=== PATIENT | female | born 1995 | race Caucasian/White ===

== ENCOUNTER 2022-02-01 15:15 | Inpatient (IN) | payer SELFPAY ==
[2022-02-01] VITALS (80 sets, daily range): BP systolic 119–189; BP diastolic 64–117; PULSE 82–119; RESP 16–24; TEMP 36.8–37.6; O2SAT 92–100; BMI 36.6
[2022-02-01] MEDS: NIFEdipine 10 MG Capsule PO (15:06)
[2022-02-01] MEDS: Lactated Ringers 1,000 ML 15 ML IV (15:12)
[2022-02-01] MEDS: Magnesium Sulfate 4gm/100mL 4 GM/100 ML IV.SOLN. IV (15:12)
[2022-02-01] MEDS: NIFEdipine 10 MG Capsule 20 MG PO ×2 (15:35→15:50)
[2022-02-01] MEDS: 0.9% Normal Saline Single 100 ML IV.SOLN. INTRA-UTER (15:36)
[2022-02-01] MEDS: Magnesium Sulfate 20 GM/500 ML BAG IV (15:37)
[2022-02-01 15:40] LABS: Bacteria 0 SEEN /hpf (None Seen); Mucous, Urine 0 SEEN /hpf (<or=2+); Red Blood Cells-Urine 0 SEEN /hpf (0-5); White Blood Cells 0 SEEN /hpf (0-5)
[2022-02-01 15:45] LABS: Absolute Lymphocyte Count 2.72 X10^3/uL (0.83-4.51); Absolute Neutrophil Count 9.3 X10^3/uL (2.0-7.7); Basophil# 0.04 X10^3/uL; Basophil% 0.3 % (0-1); Eosinophils% 0.8 % (0-5); Hematocrit 38.5 % (37-47); Hemoglobin 13.1 g/dL (12.0-15.0); Lymphocyte # 2.72 X10^3/ul (0.83-4.51); Lymphocyte % 21.2 % (19-41); Mean Corpuscular Hgb 29.4 pg (27.0-32.0); Mean Corpuscular Volume 86.3 fL (81-99); Mean Platelet Vol. 9.8 fl (6.2-12.0); Monocyte# 0.57 X10^3/uL; Monocyte% 4.4 % (0-10); NRBC Flagged by Analyzer 0 % (0-5); Neutrophil % 72.4 % (47-70); Platelet Count 319 K/mm3 (150-450); RBC Distribution Width CV 13.6 % (11.6-14.6); RBC Distribution Width SD 42.5 fl (35.1-43.9); Red Blood Count 4.46 M/mm3 (4.2-5.4); White Blood Count 12.8 K/mm3 (4.4-11.0)
--- NOTE | 2022-02-01 15:46 | PCM.HP.OB ---
HPI - General General Date of Admission: 02/01/22 Date of Service: 02/01/22 Chief Complaint: Pre eclampsia with severe features HPI Narrative SHARONDA LESTER, is a 26 F who presents at 37 wk gestation with severe SHUKLA, vision changes, and elevated BP. She had late care with a professional poker player at home. She has not had an ultrasound in the . She has not had labs in the . She reports her due date is based on a certain first day of last menstrual period. She reports a history of regular menstrual cycles. The professional poker player is present and states she started caring for the patient in the second trimester. She reports the patient's blood pressures have been elevating over the last 2 to 3 months. Another professional poker player went to the patient's home today to check her blood pressure, and it was found to be in the 170s systolic therefore the patient presented to labor and delivery. She reports she has had a headache over the last several days. Today the headache is severe. She notes blurred vision. Blood pressure on admission is 170s to 180s systolic. She also reports facial and hand swelling. She has significant edema of the lower extremities. She denies epigastric or right upper quadrant pain. She denies contractions, vaginal bleeding, leaking of fluid. She reports good movement. The patient reports she has had 2 vaginal deliveries with the biggest baby being over 8 pounds. She reports elevated blood pressures in both those pregnancies. She denies any other complications with her pregnancies or deliveries. [facility] Medical History (Updated 02/01/22 @ 15:[address] Nay Landers, DO) Hypertension affecting Medical History no medical history Home Medications Vitamin 02/01/22 [History Last Taken 01/31/22 10:00 1 tablet] iron 02/01/22 [History Last Taken Unknown] magnesium 2 tab PO Q1H 02/01/22 [History Last Taken 01/31/22] Allergy/AdvReac Type Severity Reaction Status Date / Time No Known Allergies Allergy Verified 02/01/22 14:46 Family History no significant family his Surgical History no surgical history Social History Smoking Status: Never smoker History Elective abortions Hx Para 2 Spontaneous abortions Hx # Term Pregnancies Ectopic pregnancies Hx # Pregnancies Multiple births # of living children NST FHR Rate Baby A Variability:: Moderate Accelerations:: 15 x 15 Decelerations:: None NST Reactive:: Yes FHR Category:: Category I Uterine Activity:: No ctx's Vital Signs Vital Signs Vital Signs: 02/01/22 14:36 02/01/22 14:36 02/01/22 14:40 Temperature Temperature Source Temporal Pulse Rate 86 Blood Pressure 179/110 H BP Systolic 179 BP Diastolic 110 02/01/22 14:40 02/01/22 14:52 02/01/22 14:52 Temperature 99.6 F H Temperature Source Pulse Rate 107 H Blood Pressure 182/111 H BP Systolic 182 BP Diastolic 111 02/01/22 15:00 02/01/22 15:00 02/01/22 15:07 Temperature 99.5 F H Temperature Source Axillary Pulse Rate Blood Pressure 189/113 H BP Systolic 189 BP Diastolic 113 02/01/22 15:07 02/01/22 15:13 02/01/22 15:26 Temperature Temperature Source Oral Pulse Rate 82 Blood Pressure 176/102 H BP Systolic 176 BP Diastolic 102 02/01/22 15:26 02/01/22 15:46 02/01/22 15:46 Temperature Temperature Source Pulse Rate 93 100 Blood Pressure 178/111 H BP Systolic 178 BP Diastolic 111 Weight Weight: 213 lb Body Mass Index (BMI) 36.6 Labs Labs Labs: Blood Type Pending Antibody Screen Pending Hct 38.5 % (37-47) Hgb 13.1 g/dL (12.0-15.0) Syphilis Total Ab Pending Rubella IgG Antibody Pending Hep Bs Antigen Pending HIV 1&2 Antibody Pending Group B Strep DNA Pending Assessment & Plan (1) 37 weeks gestation of : PLAN: Dating based on certain LMP with regular menstrual cycles. No prior ultrasound. Bedside ultrasound today with EFW about 6 lb 2 oz and normal fluid. Ultrasound confirms vertex presentation. (2) No care in current : PLAN: - panel and GBS on admission (3) Pre-eclampsia, severe: PLAN: - Start mag gtt for seizure prophylaxis. Start HTN protocol with Procardia as patient did not have IV. Fluid restriction. Clear liquids. Strict I&O's. Pre eclampsia labs on admission. Discussed pre eclampsia with the patient and her given severely elevated BP's, a severe persistent SHUKLA and persistent visual changes. Given gestational age, recommend delivery. Patient desires to proceed with IOL after discussion of r/b/a. (4) Multiparous:
[2022-02-01] MEDS: Oxytocin 30 units/NS 500 ml 30 UNITS/500 ML IV.SOLN IV (15:55)
[2022-02-01] MEDS: Labetalol (Prefilled) 20 MG/4 ML IV (16:11)
[2022-02-01 16:19] LABS: Protein, Urine (Random) 327.7 mg/dL (<11.9); Protein:Creat Ratio 14564 mg/g CRE (0-200)
[2022-02-01 16:25] LABS: Color, Urine Yellow (Yellow); Glucose, Dipstick Normal (Normal); Ketone-Dipstick Negative (Negative); Leukocyte Esterase-Dipstick Negative /ul (Negative); Nitrite-Dipstick Negative (Negative); Occult Blood-Urine 25 /ul (Negative); Protein-Dipstick 500 mg/dl (Negative); Urine Bilirubin Dipstick Negative (Negative); Urine Clarity Clear (Clear); Urine Urobilinogen Normal (Normal)
--- NOTE | 2022-02-01 16:26 | PCM.PN.BLA ---
Progress Note At bedside to re evaluate pt. Gave 3 doses of Procardia, now giving 1 dose of IV Labetalol for persistent elevated BP's. Mag gtt running. Pit at 2 mu/min. Coppola is out and cvx 4/70/-2, vertex, head well applied. AROM performed in usual fashion with return of clear fluid. She reports delivery of second child was quick. Anticipate vaginal delivery. If BP's cannot be controlled will need to consider section with consultation to hospitalist for assistance.
[2022-02-01 16:30] LABS: AST(SGOT) 28 U/L (15-37); Alanine Aminotransfer ALT/SGPT 20 U/L (13-56); Creatinine, Serum 0.66 mg/dL (0.55-1.02); EST Glomerular Filtration Rate 115 mL/min (>60); Est Glom Filt Rate - Afr Amer 140 mL/min (>60); Estimated Creatinine Clearance 112.52 ml/min; Uric Acid 5.3 mg/dL (2.6-6.0)
[2022-02-01 16:36] LABS: Squamous Epithelial Cells - UA 0-5 SEEN /hpf (5-10)
[2022-02-01 16:39] LABS: Amphetamine Urine VISTA NEGATIVE (<1000 ng/mL); Barbiturate Urine VISTA NEGATIVE (< 200 ng/mL); Benzodiazepine Urine VISTA NEGATIVE (< 200 ng/mL); Cocaine Urine VISTA NEGATIVE (< 300 ng/mL); Ecstacy Urine VISTA NEGATIVE (< 500 ng/mL); Methadone Urine VISTA NEGATIVE (< 300 ng/mL); PCP Urine VISTA NEGATIVE (< 25 ng/mL); THC Urine VISTA NEGATIVE (< 50 ng/mL); Vista UDS pH Range 6
[2022-02-01 17:13] LABS: Group B Strep DNA By PCR Negative (Negative); Internal Control PASS; Probe Check PASS; Specimen Processing Control PASS
[2022-02-01 17:15] LABS: Chlamydia Trachomatis by PCR Negative (Negative); Neisserai gonorrhoeae by PCR Negative (Negative); Probe Check PASS; Sample Adequacy Control PASS; Specimen Processing Control PASS
[2022-02-01] MEDS: Labetalol 100 MG Tablet PO (18:07)
[2022-02-01 18:23] LABS: HIV - WCH Non-Reactive (Nonreactive); Hepatitis B Surface Antigen Non-Reactive (Nonreactive); Hepatitis C Antibody Non-Reactive (Nonreactive)
[2022-02-01] MEDS: Acetaminophen 500 MG Tablet PO (18:45)
[2022-02-01] MEDS: Oxytocin 30 units/NS 500 ml 30 UNITS/500 ML IV.SOLN 334 UNITS IV (20:14)
--- NOTE | 2022-02-01 20:29 | OP.PCM_ITS ---
Problems Associated Problem List Diagnoses (1) Multiparous: (2) Pre-eclampsia, severe: (3) No care in current : (4) 37 weeks gestation of : Report of Operation Date of Procedure: 02/01/22 Pre-Operative Diagnosis: 37 week gestation, no care, pre eclampsia with severe features Post-Operative Diagnosis: As above Surgery/Procedure Performed:: Description of Surgical Findings:: Vigorous VFI with apgars 8,9. Normal appearing placenta with 3 VC. No lacerations. Surgeon: Nay Landers front end manager: None Type of Anesthesia: None Special Medications: None Specimen's removed: Placenta Drains: None Estimated Blood Loss (mL): 200 Fluids Replaced: N/A Description of Procedure: RN checked patient upon my arrival to the hospital and patient was 8 cm with a station of 0 to -1 per RN. Patient was placed in hands and knees by RN. Less than 5 minutes after patient was 8 cm, the patient delivered with layboy operator p wally. was delivered with patient in hands and knees by her layboy operator. Upon my arrival into the room the patient was in hands and knees, and infant was crying and vigorous covered with a blanket in the bed. The cord was clamped by myself. The cord was then cut by FOB. Patient was placed on back. The placenta was delivered with fundal massage. Placenta was noted to be normal appearing and intact with 3 VC. Fundus firm and bleeding hemostatic. No lacerations noted. Grafts/Implants Used: None Complications None Admit VTE Documentation VTE Present on Admission: No
[2022-02-01] MEDS: Labetalol 200 MG Tablet PO (20:43)
[2022-02-01] MEDS: Methylergonovine 0.2 MG/ML Ampul IM (22:28)
[2022-02-02] VITALS (35 sets, daily range): BP systolic 131–150; BP diastolic 74–98; PULSE 72–106; RESP 16–20; TEMP 36.4–37.7; O2SAT 83–99
[2022-02-02] MEDS: Magnesium Sulfate 20 GM/500 ML BAG IV ×2 (01:29→10:28)
[2022-02-02] MEDS: Acetaminophen 500 MG Tablet 1000 MG PO ×2 (01:33→08:12)
[2022-02-02 06:00] LABS: Hematocrit 37.3 % (37-47); Mean Corp Hgb Conc 34.9 g/dL (32-36); Mean Corpuscular Hgb 29.5 pg (27.0-32.0); Mean Corpuscular Volume 84.6 fL (81-99); Mean Platelet Vol. 9.6 fl (6.2-12.0); Platelet Count 287 K/mm3 (150-450); RBC Distribution Width CV 13.7 % (11.6-14.6); RBC Distribution Width SD 42.3 fl (35.1-43.9); Red Blood Count 4.41 M/mm3 (4.2-5.4); White Blood Count 14.4 K/mm3 (4.4-11.0)
[2022-02-02 06:25] LABS: ALB/GLOB Ratio 0.7 RATIO (0.9-2.4); AST(SGOT) 23 U/L (15-37); Alanine Aminotransfer ALT/SGPT 19 U/L (13-56); Albumin, Serum 2.2 g/dL (3.2-5.0); Alkaline Phosphatase 130 U/L (45-117); Anion Gap 8 (5-15); BUN 22 mg/dL (7-18); BUN/Creat Ratio 47.2 RATIO (10-20); Calcium,Total 7.7 mg/dL (8.5-10.1); Chloride 111 mmol/L (98-107); Creatinine, Serum 0.47 mg/dL (0.55-1.02); EST Glomerular Filtration Rate 172 mL/min (>60); Est Glom Filt Rate - Afr Amer 208 mL/min (>60); Estimated Creatinine Clearance 158.01 ml/min; Globulin 3.3 g/dL (2.2-4.2); Glucose 89 mg/dL (74-106); Potassium 3.5 mmol/L (3.5-5.1); Protein, Total 5.5 g/dL (6.4-8.2); Sodium Level 140 mmol/L (136-145)
--- NOTE | 2022-02-02 07:20 | NURSING ---
report given to Rafa Sosa RN who is assuming care of pt at this time
[2022-02-02] MEDS: Labetalol 200 MG Tablet PO ×2 (09:44→17:58)
--- NOTE | 2022-02-02 10:53 | PN.OBGYN_ITS ---
Subjective Subjective Pt doing well. Still has a SHUKLA. Tylenol helps with the SHUKLA but then it returns. No vision changes, RUQ pain, epigastric pain. Cramping controlled. Lochia normal. without complaints. Objective Data Objective Data Vital Signs: Vital Signs Temp Pulse Resp BP Pulse Ox O2 Del Method 98.3 F 82 18 143/84 H 97 Room Air 02/02/22 07:33 02/02/22 10:28 02/02/22 09:35 02/02/22 10:28 02/02/22 10:28 02/02/22 09:35 Oxygen Delivery Method Room Air Weight: 213 lb Body Mass Index (BMI) 36.6 Intake & Output: Intake and Output for Last 24 Hours 01/31/22 02/01/22 02/02/22 23:59 23:59 23:59 Intake Total 1294.91 / 1294.91 1580.83 / 1580.83 Output Total 1550 / 1550 700 / 700 Balance -255.09 / -255.09 880.83 / 880.83 Lab / Micro Data Result Diagrams: 02/02/22 05:45 02/02/22 05:45 Labs: Laboratory Results - last 24 hr 02/01/22 15:10: WBC 12.8 H, RBC 4.46, Hgb 13.1, Hct 38.5, MCV 86.3, MCH 29.4, MCHC 34.0, RDW Std Deviation 42.5, RDW Coeff of Marlene 13.6, Plt Count 319, MPV 9.8, Immature Gran % (Auto) 0.900, Neut % (Auto) 72.4 H, Lymph % (Auto) 21.2, [place] % (Auto) 4.4, Eos % (Auto) 0.8, Baso % (Auto) 0.3, Absolute Neuts (auto) 9.3 H, Absolute Lymphs (auto) 2.72, Nucleated RBC % 0 02/01/22 15:10: Urine Color Yellow, Urine Clarity Clear, Urine pH 6.0, Ur Specific [place] 1.010, Urine Protein 500 H, Urine Glucose (UA) Normal, Urine Ketones Negative, Urine Occult Blood 25 H, Urine Nitrite Negative, Urine Bilirubin Negative, Urine Urobilinogen Normal, Ur Leukocyte Esterase Negative, Urine RBC 0 SEEN, Urine WBC 0 SEEN, Ur Squamous Epith Cells 0-5 SEEN, Urine Bacteria 0 SEEN, Urine Mucus 0 SEEN 02/01/22 15:10: Blood Type O POSITIVE, Antibody Screen NEGATIVE 02/01/22 15:10: U Random Total Protein 327.7 H, Urine Creatinine 22.50, Protein/Creatinin Ratio 88529 H 02/01/22 15:10: Creatinine 0.66, Estim Creat Clear Calc 112.52, Est GFR (MDRD) Af Amer 140, Est GFR (MDRD) Non-Af 115, Uric Acid 5.3, AST 28, ALT 20 02/01/22 15:10: Urine Opiates Screen NEGATIVE, Urine Methadone Screen NEGATIVE, Ur Barbiturates Screen NEGATIVE, Ur Phencyclidine Scrn NEGATIVE, Ur Amphetamines Screen NEGATIVE, MDMA (Ecstasy) Screen NEGATIVE, U Benzodiazepines Scrn NEGATIVE, Urine Cocaine Screen NEGATIVE, U Cannabinoids Screen NEGATIVE, Ur Drug Screen Comment 02/01/22 15:10: Hep Bs Antigen Non-Reactive, Hepatitis C Antibody Non-Reactive, HIV 1&2 Antibody Non-Reactive 02/01/22 15:10: Chlam trachomat DNA PCR Negative, N.gonorrhoeae DNA (PCR) Negative 02/01/22 15:10: PT Cancelled, INR Cancelled, APTT Cancelled, Fibrinogen Cancelled 02/01/22 15:14: Group B Strep DNA Negative, Specimen Comment Not Reportable 02/01/22 15:55: PT Cancelled, INR Cancelled, APTT Cancelled, Fibrinogen Cancelled 02/02/22 05:45: WBC 14.4 H, RBC 4.41, Hgb 13.0, Hct 37.3, MCV 84.6, MCH 29.5, MCHC 34.9, RDW Std Deviation 42.3, RDW Coeff of Marlene 13.7, Plt Count 287, MPV 9.6 02/02/22 05:45: Sodium 140, Potassium 3.5, Chloride 111 H, Carbon Dioxide 21.0, Anion Gap 8, BUN 22 H, Creatinine 0.47 L, Estim Creat Clear Calc 158.01, Est GFR (MDRD) Af Amer 208, Est GFR (MDRD) Non-Af 172, BUN/Creatinine Ratio 47.2 H, Glucose 89, Calcium 7.7 L, Total Bilirubin 0.30, AST 23, ALT 19, Alkaline Phosphatase 130 H, Total Protein 5.5 L, Albumin 2.2 L, Globulin 3.3, Albumin/Globulin Ratio 0.7 L Micro: Microbiology 02/01/22 15:20 Nasal Secretion SARS-CoV-2 Antigen (Rapid) - Final Physical Exam Const alert and no apparent distress General Appearance: comfortable HEENT normocephalic Resp normal respiratory effort GI soft to palpation and non-tender GI Narrative: Fundus firm Extremity no calf tenderness Extremity Narrative: Pitting edema bilaterally of LE Neuro moves all extremities, no focal motor deficits and no sensory deficits noted Assessment & Plan (1) Pre-eclampsia, severe: PLAN: - Cont Labetalol 200 mg BID for now. Will have RN call with update on bloo d pressures 8 hours after AM dose, and discussed may need to increase dosing to Labetalol 200 mg TID. To call with any severe range BP's. Continue mag gtt for 24 hours. Labs reviewed and will repeat in AM. Cont fluid restriction. Dispo: Discussed with patient will need to monitor BP's for at least 24 hours off mag gtt, and to anticipate staying at least 2 more nights in hospital. (2) No care in current : (3) Vaginal delivery: PLAN: - Doing well. VFI.
[2022-02-02] MEDS: Ibuprofen 600 MG Tablet PO (11:43)
[2022-02-02] MEDS: 0.9% Saline Lock 10 ML Syringe IV (20:11)
[2022-02-03] VITALS (56 sets, daily range): BP systolic 130–173; BP diastolic 67–112; PULSE 66–105; RESP 16–18; TEMP 37.1–38.8; O2SAT 96–100
[2022-02-03] MEDS: Labetalol (Prefilled) 20 MG/4 ML IV (01:25)
[2022-02-03] MEDS: 0.9% Saline Lock 10 ML Syringe IV ×3 (01:26→22:03)
[2022-02-03] MEDS: Labetalol 200 MG Tablet PO (01:36)
[2022-02-03] MEDS: Labetalol (Prefilled) 20 MG/4 ML 40 MG IV (05:31)
[2022-02-03 05:46] LABS: Hematocrit 34.1 % (37-47); Hemoglobin 11.3 g/dL (12.0-15.0); Mean Corp Hgb Conc 33.1 g/dL (32-36); Mean Corpuscular Hgb 29.9 pg (27.0-32.0); Mean Corpuscular Volume 90.2 fL (81-99); Mean Platelet Vol. 9.3 fl (6.2-12.0); Platelet Count 229 K/mm3 (150-450); RBC Distribution Width CV 14.5 % (11.6-14.6); RBC Distribution Width SD 47.7 fl (35.1-43.9); Red Blood Count 3.78 M/mm3 (4.2-5.4); White Blood Count 6.9 K/mm3 (4.4-11.0)
[2022-02-03] MEDS: NIFEdipine 30 MG Tablet PO (05:53)
[2022-02-03 06:09] LABS: ALB/GLOB Ratio 0.7 RATIO (0.9-2.4); AST(SGOT) 19 U/L (15-37); Alanine Aminotransfer ALT/SGPT 19 U/L (13-56); Alkaline Phosphatase 108 U/L (45-117); Anion Gap 8 (5-15); BUN 23 mg/dL (7-18); BUN/Creat Ratio 46.3 RATIO (10-20); Calcium,Total 7.2 mg/dL (8.5-10.1); Chloride 111 mmol/L (98-107); EST Glomerular Filtration Rate 160 mL/min (>60); Est Glom Filt Rate - Afr Amer 193 mL/min (>60); Estimated Creatinine Clearance 148.53 ml/min; Glucose 81 mg/dL (74-106); Potassium 4.2 mmol/L (3.5-5.1); Sodium Level 139 mmol/L (136-145)
[2022-02-03 08:04] LABS: Rubella IgG Non-Reactive (Nonreactive); Syphilis Antibodies Non-reactive
--- NOTE | 2022-02-03 08:32 | PCM.PN.OB ---
Subjective Subjective Pt is doing well this morning. Has a mild headache and she reports she does not need any medication this morning. Otherwise is doing okay. Cramping is well controlled. She denies any chest pain or shortness of breath. Swelling is improving. She is ambulating voiding without difficulty. She is breast-feeding. Lochia is normal. Objective Data Objective Data Vital Signs: Vital Signs Temp Pulse Resp BP Pulse Ox O2 Del Method 99.4 F H 103 H 18 146/84 H 97 Room Air 02/03/22 07:20 02/03/22 08:23 02/03/22 07:20 02/03/22 08:23 02/03/22 05:31 02/03/22 04:33 Oxygen Delivery Method Room Air Weight: 213 lb Body Mass Index (BMI) 36.6 Intake & Output: Intake and Output for Last 24 Hours 02/01/22 02/02/22 02/03/22 23:59 23:59 23:59 Intake Total 1294.91 / 1294.91 2945.00 / 2945.00 1000 / 1000 Output Total 1550 / 1550 2740 / 2740 500 / 500 Balance -255.09 / -255.09 205.00 / 205.00 500 / 500 Lab / Micro Data Result Diagrams: 02/03/22 05:35 02/03/22 05:35 Labs: Laboratory Results - last 24 hr 02/01/22 15:10: Syphilis Total Ab Non-reactive, Rubella IgG Antibody Non-Reactive 02/03/22 05:35: WBC 6.9, RBC 3.78 L, Hgb 11.3 L, Hct 34.1 L, MCV 90.2 D, MCH 29.9, MCHC 33.1 D, RDW Std Deviation 47.7 H, RDW Coeff of Marlene 14.5, Plt Count 229, MPV 9.3 02/03/22 05:35: Sodium 139, Potassium 4.2, Chloride 111 H, Carbon Dioxide 20.0 L, Anion Gap 8, BUN 23 H, Creatinine 0.50 L, Estim Creat Clear Calc 148.53, Est GFR (MDRD) Af Amer 193, Est GFR (MDRD) Non-Af 160, BUN/Creatinine Ratio 46.3 H, Glucose 81, Calcium 7.2 L, Total Bilirubin 0.40, AST 19, ALT 19, Alkaline Phosphatase 108, Total Protein 5.0 L, Albumin 2.0 L, Globulin 3.0, Albumin/Globulin Ratio 0.7 L Micro: Microbiology 02/01/22 15:20 Nasal Secretion SARS-CoV-2 Antigen (Rapid) - Final Physical Exam Const alert and no apparent distress General Appearance: comfortable HEENT normocephalic Resp normal respiratory effort GI soft to palpation Extremity no calf tenderness Extremity Narrative: Pitting edema bilaterally of LE Swelling of hands improving Facial swelling improving Assessment & Plan (1) Vaginal delivery: PLAN: - Doing well - (2) Pre-eclampsia, severe: PLAN: - S/p mag gtt - Tylenol and Motrin PRN SHUKLA - Labs reviewed this AM - Swelling improving - Was treated overnight with IV meds for severe BP's - Procardia 30 mg XR added this morning. BP's still 150's so will increase Labetalol to 300 mg TID - Discussed with pt importance of following up with us . Cyndie RN will discussed outpatient program to follow BP's as pt is interested - order placed. Discussed risk of stroke and with poorly controlled BP's. She understands it is recommended that she do not follow up with sail lay out worker at this time. Discussed high risk for pre eclampsia with future pregnancies, and recommend that she receive care through our office. She states understanding and she plans to follow up with our office - Dispo: Anticipate discharge tomorrow pending BP control (3) 37 weeks gestation of :
[2022-02-03] MEDS: Ibuprofen 600 MG Tablet PO (08:45)
[2022-02-03] MEDS: Labetalol 200 MG Tablet 300 MG PO ×3 (08:45→22:02)
[2022-02-03] MEDS: Acetaminophen 500 MG Tablet 1000 MG PO (22:18)
--- NOTE | 2022-02-03 22:55 | PCM.PN.BLA ---
Progress Note Called for fevers. At bedside to examine pt. She states her was recently sick with fevers, rhinorrhea, and sinus congestion. He did not have muscle aches or pains. She reports now she is getting rhinorrhea and a cough. She denies CP, SOB, wheezing, congestion, breast pain, pelvic pain, leg pain. Physical Exam Const alert and no apparent distress General Appearance: comfortable HEENT normocephalic Resp normal respiratory effort GI soft to palpation GI Narrative: FF@U-1, no uterine tenderness Extremity no calf tenderness Extremity Narrative: Swelling improving of LE's Assessment & Plan Assessment/Plan (1) Fever: PLAN: - No uterine tenderness or evidence of DVT. No breast complaints. recently sick with congestion and fevers. She now feels rhinorrhea and a cough. Covid on admission negative. Tylenol PRN fevers and will continue to monitor. Discussed to let us know if symptoms worsen. Consider flu swab and covid antigen. Send UA and check CBC w/ diff in AM.
[2022-02-04 00:02] LABS: Bacteria 0 SEEN /hpf (None Seen); Glucose, Dipstick Normal (Normal); Ketone-Dipstick Negative (Negative); Leukocyte Esterase-Dipstick 25 /ul (Negative); Mucous, Urine 0 SEEN /hpf (<or=2+); Nitrite-Dipstick Negative (Negative); Occult Blood-Urine 250 /ul (Negative); Protein-Dipstick 30 mg/dl (Negative); Squamous Epithelial Cells - UA 0 SEEN /hpf (5-10); Urine Bilirubin Dipstick Negative (Negative); Urine Clarity Clear (Clear); Urine Urobilinogen Normal (Normal); Urine pH 6.5 (5.0 - 8.0)
[2022-02-04 00:10] LABS: Color, Urine Yellow (Yellow); Red Blood Cells-Urine 0-5 SEEN /hpf (0-5); White Blood Cells 0-5 SEEN /hpf (0-5)
[2022-02-04 05:35] VITALS: BP 144/106; PULSE 68; RESP 16; TEMP 36.6; O2SAT 97
[2022-02-04] MEDS: Labetalol 200 MG Tablet 300 MG PO (05:42)
[2022-02-04] MEDS: NIFEdipine 30 MG Tablet PO (05:43)
[2022-02-04 05:57] LABS: Absolute Lymphocyte Count 2.22 X10^3/uL (0.83-4.51); Basophil# 0.05 X10^3/uL; Hematocrit 32.4 % (37-47); Hemoglobin 10.8 g/dL (12.0-15.0); Lymphocyte # 2.22 X10^3/ul (0.83-4.51); Lymphocyte % 44.5 % (19-41); Mean Corp Hgb Conc 33.3 g/dL (32-36); Mean Corpuscular Hgb 29.3 pg (27.0-32.0); Mean Corpuscular Volume 87.8 fL (81-99); Mean Platelet Vol. 9.2 fl (6.2-12.0); Monocyte# 0.54 X10^3/uL; Monocyte% 10.8 % (0-10); NRBC Flagged by Analyzer 0 % (0-5); Neutrophil # 2.03 X10^3/uL (2.7-7.7); Neutrophil % 40.7 % (47-70); Platelet Count 198 K/mm3 (150-450); RBC Distribution Width CV 14.6 % (11.6-14.6); RBC Distribution Width SD 46.4 fl (35.1-43.9); Red Blood Count 3.69 M/mm3 (4.2-5.4)
--- NOTE | 2022-02-04 08:05 | PN.OBGYN_ITS ---
Subjective Subjective Doing well per patient and nursing staff. Ambulating and taking PO without difficulty. Voiding and passing flatus. Pain controlled. , services for assistance. Denies headache, visual changes, chest pain, shortness of breath, leg pain or increased bleeding. Lochia normal. Objective Data Objective Data Vital Signs: Vital Signs Temp Pulse Resp BP Pulse Ox O2 Del Method 97.8 F 68 16 144/106 H 97 Room Air 02/04/22 05:35 02/04/22 05:35 02/04/22 05:35 02/04/22 05:35 02/04/22 05:35 02/04/22 05:35 Oxygen Delivery Method Room Air Weight: 213 lb Body Mass Index (BMI) 36.6 Intake & Output: Intake and Output for Last 24 Hours 02/02/22 02/03/22 02/04/22 23:59 23:59 23:59 Intake Total 2945.00 / 2945.00 2500 / 2500 Output Total 2740 / 2740 2300 / 2300 Balance 205.00 / 205.00 200 / 200 Lab / Micro Data Result Diagrams: 02/04/22 05:43 02/03/22 05:35 Labs: Laboratory Results - last 24 hr 02/03/22 23:55: Urine Color Yellow, Urine Clarity Clear, Urine pH 6.5, Ur Specific [place] 1.010, Urine Protein 30 H, Urine Glucose (UA) Normal, Urine Ketones Negative, Urine Occult Blood 250 H, Urine Nitrite Negative, Urine Bilirubin Negative, Urine Urobilinogen Normal, Ur Leukocyte Esterase 25 H, Urine RBC 0-5 SEEN, Urine WBC 0-5 SEEN, Ur Squamous Epith Cells 0 SEEN, Urine Bacteria 0 SEEN, Urine Mucus 0 SEEN 02/04/22 05:43: WBC 5.0, RBC 3.69 L, Hgb 10.8 L, Hct 32.4 L, MCV 87.8, MCH 29.3, MCHC 33.3, RDW Std Deviation 46.4 H, RDW Coeff of Marlene 14.6, Plt Count 198, MPV 9.2, Immature Gran % (Auto) 1.000 H, Neut % (Auto) 40.7 L, Lymph % (Auto) 44.5 H , [place] % (Auto) 10.8 H, Eos % (Auto) 2.0, Baso % (Auto) 1.0, Absolute Neuts (auto) 2.0, Absolute Lymphs (auto) 2.22, Nucleated RBC % 0 Micro: Microbiology 02/01/22 Unknown Genital vaginal Group B Streptococcus Culture - Final Group B Beta Streptococcus is not isolated. 02/01/22 15:20 Nasal Secretion SARS-CoV-2 Antigen (Rapid) - Final ROS Constitutional Constitutional: Reports systems reviewed and no addt'l complaints, except as documented; Denies headache(s) Eyes Eyes: Denies acute decrease in peripheral vision, blurry vision or change in vision ENT HEENT: Reports systems reviewed and no addt'l complaints, except as documented Cardiovascular Cardiovascular: Denies chest pain or dizziness Respiratory/Chest Respiratory/Chest: Denies cough, dyspnea, dyspnea on exertion, shortness of breath at rest or shortness of breath with exertion Gastrointestinal Gastrointestinal: Denies abdominal pain, diarrhea, nausea or vomiting Genitourinary Genitourinary: Denies abdominal discomfort Musculoskeletal Musculoskeletal: Denies limited range of motion Integumentary Integumentary: Reports systems reviewed and no addt'l complaints, except as documented Neurologic Neurologic: Reports systems reviewed and no addt'l complaints, except as documented Psychiatric Psychiatric: Reports systems reviewed and no addt'l complaints, except as documented Endocrine Endocrinology: Reports systems reviewed and no addt'l complaints, except as documented Hematologic/Lymphatic Hematologic/Lymphatic: Reports systems reviewed and no addt'l complaints, except as documented Allergic/Immunologic Allergic/Immunologic: Reports systems reviewed and no addt'l complaints, except as documented Physical Exam Const alert and oriented x3 General Appearance: cooperative Orientation / Consciousness: awake, oriented to person, oriented to place and oriented to time Exam Limitations: no limitations HEENT normocephalic Head and Scalp: normal to inspection, normocephalic and atraumatic Face and Sinus: normal facial exam Eyes General Eye: normal appearance of both eyes Neck full ROM Chest Chest: symmetrical chest wall rise Resp normal respiratory effort and normal air movement Auscultation: clear to auscultation bilaterally Cardio regular rate, regular rhythm, S1 normal heart sound, S2 normal heart sound, no murmurs, no rub, no gallops and no clicks GI normal to inspection, nondistended, normoactive bowel sounds and non-tender Bladder / Kidney Exam: no CVA tenderness Back/Spine normal ROM Extremity normal to inspection and full ROM Skin no rashes or lesions noted Neuro oriented x3 and moves all extremities Sensorium / Orientation: awake, alert and oriented to person Motor Exam: clonus absent Deep Tendon Reflexes: Rt Patellar (L4): 2+ and Lt Patellar (L4): 2+ Assessment & Plan (1) Vaginal delivery: (2) Multiparous: (3) Pre-eclampsia, severe: PLAN: Plan PLAN:?- S/p mag gtt - Procardia 30 mg XR and Labetalol to 300 mg TID, BP stable. Follow up in office in 2 days for BP check - Discussed with pt importance of following up with us . and Cyndie, RN discussed with patient follow up and future plans yesterday and voiced understanding. -Pain management
[2022-02-04 08:50] VITALS: BP 143/101; PULSE 80; RESP 16; TEMP 36.5
--- NOTE | 2022-02-04 08:51 | PCM.DC.SUM ---
Providers Date of Admission: 02/01/22 Primary Care Physician: No Primary Care Phys Reason For Visit: VAGINAL DELIVERY Diagnosis Discharge Diagnosis (1) Vaginal delivery: Status: Acute Code(s): O80 - Encounter for full-term uncomplicated delivery (2) Multiparous: Status: Acute Code(s): Z64.1 - Problems related to multiparity (3) Pre-eclampsia, severe: Status: Acute Code(s): O14.10 - Severe pre-eclampsia, unspecified trimester Plan PLAN:?- S/p mag gtt - Procardia 30 mg XR and Labetalol to 300 mg TID, BP stable. Follow up in office in 2 days for BP check - Discussed with pt importance of following up with us . and ECHO Agee discussed with patient follow up and future plans yesterday and voiced understanding. -Pain management Medications at Discharge Home Medications Vitamin 02/01/22 iron 02/01/22 magnesium 2 tab PO Q1H 02/01/22 acetaminophen 500 mg tablet 1,000 mg PO Q6H PRN PRN Pain 1-10 Or Fever #0 tabs 02/04/22 ibuprofen 600 mg tablet 600 mg PO Q6H PRN PRN Pain 1-10 Or Fever #0 tabs 02/04/22 labetalol 200 mg tablet 300 mg PO TID #60 tabs 02/04/22 nifedipine 30 mg tablet,extended release 24 hr 30 mg PO DAILY@0600 #30 tabs 02/04/22 Weight / BMI Weight Weight: 213 lb Body Mass Index (BMI) 36.6 ABG / Lab / Microbiology Data Result Diagrams: 02/04/22 05:43 02/03/22 05:35 Laboratory: Laboratory Results - last 24 hr 02/03/22 23:55: Urine Color Yellow, Urine Clarity Clear, Urine pH 6.5, Ur Specific [place] 1.010, Urine Protein 30 H, Urine Glucose (UA) Normal, Urine Ketones Negative, Urine Occult Blood 250 H, Urine Nitrite Negative, Urine Bilirubin Negative, Urine Urobilinogen Normal, Ur Leukocyte Esterase 25 H, Urine RBC 0-5 SEEN, Urine WBC 0-5 SEEN, Ur Squamous Epith Cells 0 SEEN, Urine Bacteria 0 SEEN, Urine Mucus 0 SEEN 02/04/22 05:43: WBC 5.0, RBC 3.69 L, Hgb 10.8 L, Hct 32.4 L, MCV 87.8, MCH 29.3, MCHC 33.3, RDW Std Deviation 46.4 H, RDW Coeff of Marlene 14.6, Plt Count 198, MPV 9.2, Immature Gran % (Auto) 1.000 H, Neut % (Auto) 40.7 L, Lymph % (Auto) 44.5 H, [place] % (Auto) 10.8 H, Eos % (Auto) 2.0, Baso % (Auto) 1.0, Absolute Neuts (auto) 2.0, Absolute Lymphs (auto) 2.22, Nucleated RBC % 0 Microbiology: Microbiology 02/01/22 Unknown Genital vaginal Group B Streptococcus Culture - Final Group B Beta Streptococcus is not isolated. 02/01/22 15:20 Nasal Secretion SARS-CoV-2 Antigen (Rapid) - Final Meaningful Use Info Meaningful Use Diagnoses (Choose all that apply): None applicable Discharge Plan Admission Admit Date/Time: 02/01/22 15:15 Primary Reason for Your Visit: Vaginal Delivery with Severe Preeclampsia Attending Provider: Nay Landers Primary Care Provider: Care PhysicianBarbie Primary Discharge Orders/Prescriptions Prescriptions: New labetalol 200 mg Tablet 300 mg PO TID Qty: 60 0RF acetaminophen 500 mg Tablet 1,000 mg PO Q6H PRN PRN (Reason: Pain 1-10 Or Fever) Qty: 0 0RF ibuprofen 600 mg Tablet 600 mg PO Q6H PRN PRN (Reason: Pain 1-10 Or Fever) Qty: 0 0RF nifedipine 30 mg Tablet Extended Release 24hr 30 mg PO DAILY@0600 Qty: 30 0RF No Action magnesium Tablet 2 tab PO Q1H Vitamin iron Referrals / Follow Up: Care PhysicianBarbie Primary [Primary Care Provider] - Disposition Disposition (needs filled in before D/C Order can be placed): Home, Self Care
--- NOTE | 2022-02-04 09:17 | NURSING ---
Rossi Kahn CNM on unit and notified of blood pressure reading this morning with assessment.
--- NOTE | 2022-02-04 10:41 | NURSING ---
Approached pt and her about the Patient Link program and they did not feel that they would be allowed through the pt to participate due to the technology of the tablet. They stated they understood why they needed to monitor her BP at home and stated they could just buy a BP cuff at [facility].
== END 2022-02-04 12:35 | disposition home or self-care (01) | DRG 807 ==
LOC: WPOUT 15:31 → WP 15:31
PROVIDERS: Admitting Provider Obstetrics & Gynecology; Referring Provider Obstetrics & Gynecology; Visit Provider Obstetrics & Gynecology
DX: O14.14 Severe pre-eclampsia complicating childbirth (principal); Z37.0 Single live birth; R50.9 Fever, unspecified; Z20.822 Contact with and (suspected) exposure to COVID-19; Z3A.37 37 weeks gestation of pregnancy; Z79.899 Other long term (current) drug therapy
CPT/HCPCS: 59025; 59050; 76815; 80053; 80307; 81001; 82330; 82565; 82570; 84156; 84450; 84460; 84550; 85025; 85027; 86703; 86762; 86780; 86803; 86850; 86900; 86901; 87077; 87081; 87086; 87088; 87186; 87340; 87426; 87491; 87591; 87653; 99218; J7120; A4216; G0378